=== PATIENT | male | born 1970 | race Caucasian/White ===

== ENCOUNTER 2017-11-09 06:58 | Day surgery (SDC) | payer OTHER, MEDICARE ==
[~2017-11-09] VITALS: Ht 165.1 cm; Wt 69.0 kg
[~2017-11-09 06:58] MED LIST: ALLO100T PO; CARB200T6 PO; CLON-570 PO; CRAN405C PO; DIPH50 PO; FISH1CAP27 PO; FOLI1 PO; LEVO75 PO; LUBI8CAP PO; MULT-1203 PO; OLAN10TA3 PO; QUES4 PO; VITAD1000 PO; ZOLP10TA7 PO; [UNRECOGNIZED DRUG - CODE] PO
[2017-11-09] MEDS ORDERED: MIDAZOLAM HCL 2 MG/2 ML VIAL IVP ONE (06:59)
[2017-11-09] MEDS ORDERED: RINGERS SOLUTION,LACTATED 1,000 ML IV ONE ×2 (07:00→07:01)
[2017-11-09 08:07] LABS: PROTHROMBIN TIME 10.5 SEC (9.4-11.6)
[2017-11-09] MEDS ORDERED: AMPICILLIN SODIUM 1 GM/VIAL ONE (09:14)
[2017-11-09] MEDS ORDERED: DEXAMETHASONE SOD PHOS 4 MG/ML VIAL ONE (12:29)
[2017-11-09] MEDS ORDERED: LIDOCAINE HCL/PF 2% 5 ML VIAL ONE (12:52)
[2017-11-09] MEDS ORDERED: ONDANSETRON HCL 4 MG/2 ML VIAL ONE (13:13)
== END 2017-11-09 14:55 | disposition home or self-care (01) ==
LOC: SURGERY 06:58
PROVIDERS: ATTEND Dentist General Practice
DX: K05.30 Chronic periodontitis, unspecified (principal); K03.6 Deposits [accretions] on teeth; F73 Profound intellectual disabilities; Q90.9 Down syndrome, unspecified; E03.9 Hypothyroidism, unspecified; E78.5 Hyperlipidemia, unspecified; M10.9 Gout, unspecified; I10 Essential (primary) hypertension; G47.33 Obstructive sleep apnea (adult) (pediatric); F31.9 Bipolar disorder, unspecified; Z98.890 Other specified postprocedural states; Z79.899 Other long term (current) drug therapy
CPT/HCPCS: 36415; 41899; 85610; 85730; J0290; J1100; J2405; J3490; J7120; J2250